=== PATIENT | female | born 1960 | race African-American/Black ===

== ENCOUNTER 2016-12-04 18:48 | Emergency (ER) | payer OTHER ==
[2016-12-04 18:53] VITALS: BP 102/65; BMI 41.9
--- NOTE | 2016-12-04 19:01 | DR.EXTPAIN ---
HPI - Time seen Time seen: 19:00 - PCP Primary Care Physician: karthikeyan romero - Complaint/Symptoms Chief Complaint Doctor Comments: I agree with statement Chief Complaint:: left knee pain just woke up with it hurting, denies any recent injury or trauma. states she has a screw in knee from old injury. c/o rash all over . - Source History Provided: Patient - Mode of arrival Mode of Arrival: Wheelchair - Timing Onset of Chief Complaint: 12/04/16 PMH - PMH Past Medical History: Yes Past Medical History: Hypertension Past Surgical History: Yes Surgical History: Ortho Surgery Past Surgical History Comment: rotater cuff , rt knee - Family History History of Family Medical Conditions: Yes Family Medical History: Diabetes Mellitus, Hypertension - Social History Type of Tobacco Use: Cigarettes Do you use any recreational Drugs:: No Lives Where: Home - infectious screening Have you traveled outside the country in the last 6 months?: No Isolation: Standard ROS - Review of Systems Eyes: No Symptoms Reported ENTM: No Symptoms Reported Respiratoy: No Symptoms Reported Cardiovascular: No Symptoms Reported Gastrointestinal/Abdominal: No Symptoms Reported Genitourinary: No Symptoms Reported Neurological: No Symptoms Reported Musculoskeletal: No Symptoms Reported Integumentary: No Symptoms Reported Hematologic/Lymphatic: No Symptoms Reported Endocrine: No Symptoms Reported Psychiatric: No Symptoms Reported All Other Systems: Reviewed and Negative PE - Vital Signs Vitals: Temperature 99.0 F Pulse Rate 104 Respiratory Rate 22 Blood Pressure 102/65 O2 Sat by Pulse Oximetry 98 - General Limitations: No Limitations General Appearance: Alert, In No Apparent Distress - Head Head Exam: Normal Inspection, Atraumatic - Eyes Eye exam: Normal Appearance, PERRL, EOMI - ENT ENT Exam: Normal Exam - Neck Neck Exam: Normal Inspection, Full ROM - Chest Chest Inspection: Normal Inspection - Respiratory Respiratory Exam: Normal Lung Sounds Bilat Respiratory Exam: Bilateral Clear to Auscultation - Cardiovascular Cardiovascular Exam: Regular Rate, Normal Rhythm - Abdominal Exam Abdominal Exam: Normal Inspection Abdominal Tenderness: negative: RUQ, RLQ, LUQ, LLQ, Epigastrium, Suprapubic, Diffuse, Mild, Moderate, Severe, Other - Extremities Extremities Exam: Normal Inspection, Full ROM - Upper Extremities Shoulder Exam: Normal Inspection Arm Exam: Normal Inspection Elbow Exam: Normal Inspection Forearm Exam: Normal Inspection, Full ROM Hand Exam: Normal Inspection Neuromotor Exam: Normal Exam Neurosensory Exam: Normal Exam Hand Tendon Exam: Flexor Digitorium Profundus (Location) Upper Ext. Vascular Exam: Capillary Refill - Lower Extremities Hip/Pelvis Exam: Normal Inspection Upper Leg Exam: Normal Inspection Knee Exam: Tenderness (left) Lower Leg Exam: Normal Inspection Ankle Exam: Normal Inspection Foot/Toe Exam: Normal Inspection Neurovascular/Tendon Exam: Normal Capillary Refill ROR - Labs Reviewed Laboratory: Streptococcus Screen Positive (NEGATIVE) A 12/04/16 21:00 - XRAY XRAY Interpreted by: Radiologist (There are postsurgical changes of previous ACL repair. Additional fixation anchors and screws overlie the proximal tibia and fibula. There is moderate tricompartmental DJD, worse in the medial femorotibial compartment. No acute cortical disruption or malalignment is identified. ) Procedures - Procedure Comments Procedures: Triamcinolong 40mg in lidocaine 1:1 mixture injected into right knee compartment w/o difficulity. Two previous injection. - Diagnosis Discharge Problem: Left knee DJD Qualifiers: Osteoarthritis type: post-traumatic Qualified Code(s): M17.32 - Unilateral post -traumatic osteoarthritis, left knee - Discharge Plan Condition: Stable - Follow ups/Referrals Follow ups/Referrals: NFD,None [Primary Care Provider] - 3 days - Instructions
[2016-12-04] MEDS ORDERED: DILAUDID INJ IM ONE (19:03)
[2016-12-04] MEDS ORDERED: DILAUDID INJ ONE (19:05)
--- NOTE | 2016-12-04 21:04 | RAD ---
Left knee, three views Indication: Severe knee pain. Denies trauma. Comparison: None Findings: True lateral view was not obtained, secondary to poor patient mobility and inability to hol d still. There are postsurgical changes of previous ACL repair. Additional fixation anchors and screws overlie the proximal tibia and fibula. There is moderate tricompartmental DJD, worst in the medial femorotib ial compartment. No acute cortical disruption or malalignment is identified. Evaluation for joint eff usion is precluded by lack of lateral view. Impression: Suboptimal examination as above. Postsurgical changes of the knee. No evidence for acute left knee fr acture or subluxation. Moderate tricompartmental DJD, worst in the medial compartment. Reported By:
[2016-12-04] MEDS ORDERED: KENALOG INJ 40 MG ONE (21:22)
[2016-12-04] MEDS ORDERED: XYLOCAINE 1 % (PLAIN) ONE (21:22)
[2016-12-04] MEDS ORDERED: XYLOCAINE 1 % (PLAIN) IM ONE (21:23)
[2016-12-04] MEDS ORDERED: KENALOG INJ 40 MG IM ONE (21:23)
[2016-12-04] MEDS ORDERED: BICILLIN L-A IM ONE ×2 (21:31→21:32)
== END 2016-12-04 21:58 | disposition home or self-care (01) ==
LOC: ER 18:57
PROC: 3E0R33Z Introduction of Anti-inflammatory into Spinal Canal, Percutaneous Approach (ICD-10-PCS; principal; 2016-12-04)
DX: M17.32 Unilateral post-traumatic osteoarthritis, left knee (principal)
CPT/HCPCS: 20610; 73560; 87880; 96372; 99283; J0570; J2001; J3301

== ENCOUNTER 2016-12-17 20:08 | Emergency (ER) | payer OTHER ==
[2016-12-17 20:17] VITALS: BP 144/94; BMI 42.7
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
[2016-12-17] MEDS ORDERED: TORADOL 60 MG VIAL IM ONE (21:46)
[2016-12-17] MEDS ORDERED: TORADOL 60 MG VIAL ONE (22:02)
== END 2016-12-17 22:19 | disposition home or self-care (01) ==
LOC: ER 20:22
DX: M54.5 Low back pain (principal); W11.XXXA Fall on and from ladder, initial encounter; Y92.096 Garden or yard of other non-institutional residence as the place of occurrence of the external cause
CPT/HCPCS: 96372; 99282; J1885

== ENCOUNTER 2017-08-19 09:57 | Emergency (ER) | payer OTHER ==
[2017-08-19 10:10] VITALS: BP 159/104; BMI 41.3
[2017-08-19] MEDS ORDERED: TORADOL 60 MG VIAL IM ONE (11:08)
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
[2017-08-19] MEDS ORDERED: TORADOL 60 MG VIAL ONE (11:16)
[2017-08-19 11:31] LABS: BASOPHILS # (AUTO) 0.1 X10^3/uL (0.0-0.1); EOSINOPHILS # (AUTO) 0.1 x10^3/uL (0.0-0.2); EOSINOPHILS % (AUTO) 1.9 % (0.9-2.9); HEMATOCRIT 33.8 % (36.0-47.0); HEMOGLOBIN 11.4 g/dL (12.0-16.0); LYMPHOCYTES # (AUTO) 1.3 X10^3/uL (1.3-2.9); LYMPHOCYTES % (AUTO) 23.9 % (21.0-51.0); MEAN CORPUSCULAR HEMOGLOBIN 26.2 pg (27.0-34.0); MEAN CORPUSCULAR HGB CONC 33.6 g/dL (33.0-35.0); MEAN CORPUSCULAR VOLUME 78.2 fL (80.0-100.0); MEAN PLATELET VOLUME 7.6 fL (7.4-11.0); MONOCYTES # (AUTO) 0.7 x10^3/uL (0.3-0.8); MONOCYTES % (AUTO) 13.2 % (0.0-13.0); NEUTROPHILS # (AUTO) 3.3 x10^3/uL (2.2-4.8); PLATELET COUNT 261 X10^3/uL (150.0-450.0); RED BLOOD COUNT 4.33 X10^6/uL (3.5-5.4); RED CELL DISTRIBUTION WIDTH 14.8 % (11.6-16.5); WHITE BLOOD COUNT 5.5 X10^3/uL (3.6-10.0)
[2017-08-19 11:44] LABS: ALANINE AMINOTRANSFERASE 66 Units/L (12-78); ALBUMIN 3.2 g/dL (3.4-5.0); ALKALINE PHOSPHATASE 82 Units/L (46-116); ASPARTATE AMINO TRANSFERASE 42 Units/L (15-37); BLOOD UREA NITROGEN 8 mg/dL (7-18); CALCIUM 8.2 mg/dL (8.5-10.1); CHLORIDE 102 mmol/L (98-107); COR CA(FOR HYPOALB) 8.8 mg/dL (8.5-10.1); CREATININE 0.94 mg/dL (0.55-1.02); SODIUM 139 mmol/L (136-145); TOTAL PROTEIN 7.7 g/dL (6.4-8.2); eGFR BLACK RACES > 60 (>60); eGFR NON BLACK RACES > 60 (>60)
--- NOTE | 2017-08-19 12:47 | RAD ---
HISTORY: Left knee pain and swelling. No history of trauma. Study: Left knee: Three views. A true lateral view is not obtained Comparison: 12/04/2016 Findings: [id number] joint space narrowing is noted in the medial compartment. [id number] spurring is noted medially with minimal laterally. Chondrocalcinosis of the lateral meniscus is noted. Evid ence for previous ACL repair is present. There also appears to been previous ligamentous repair arou nd the fibular head. On what is seen of the patellofemoral joint there appears to possibly be a join t effusion and moderate to moderately severe degenerative change. IMPRESSION: 1. Degenerative change in the left knee as described above. 2. Possible joint effusion. 3. I see no definite acute bony abnormalities given limitations as described above. Reported By:
[2017-08-19] MEDS ORDERED: NS 100 ML IV 100 ML IV ONE (13:00)
== END 2017-08-19 16:13 | disposition home or self-care (01) ==
LOC: ER 10:17
DX: M25.562 Pain in left knee (principal); M79.661 Pain in right lower leg
CPT/HCPCS: 36415; 73560; 80053; 85025; 85378; 86140; 96365; 96372; 99282; 99283; A4222; J1885